=== PATIENT | female | born 1970 | race Caucasian/White ===

== ENCOUNTER 2018-08-28 11:03 | Emergency (ER) | payer SELFPAY ==
[2018-08-28] MEDS ORDERED: Zofran 4 MG/2 ML VIAL IV ONE (11:33)
[2018-08-28] MEDS ORDERED: Hydromorphone 1 mg/ml Ampule IV ONE (11:33)
[2018-08-28] MEDS ORDERED: Sodium Chloride 0.9% 1000 ML 1,000 ML IV STA (11:33)
--- NOTE | 2018-08-28 11:33 | ERPHSYRPT ---
- History of Present Illness Time Seen by Provider: 08/28/18 11:20 Source: patient Exam Limitations: no limitations Patient Subjective Stated Complaint: right low back pain since yesterday. no injury Triage Nursing Assessment: alert and uncomfortable with right flank pain going into right abdomen. states some mild urinary symptoms where she cannot get the flow started. denies hematuria. denies injury. 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 Physician History: 48 y/o white female presents with one day h/o initial right flank with radiation into right groin. no n/v/d. no hematuria. no known kidney stones. never had this pain before. no dysuria. Timing/Duration: day(s) (1) Activites at Onset: none Quality: aching, sharpness, stabbing Onset Location: right flank Pain Radiation: RLQ Severity of Pain-Max: moderate Severity of Pain-Current: moderate Prior abdominal problems: none Sexual intercourse history: non-contributory Modifying Factors: Improves With: nothing (tried 6x 200mg ibuprofen otc) Associated Symptoms: denies symptoms Allergies/Adverse Reactions: codeine Adverse Reaction (Verified 08/26/15 13:10) Hx Tetanus, Diphtheria Vaccination/Date Given: Yes (2005) Hx Influenza Vaccination/Date Given: No Hx Pneumococcal Vaccination/Date Given: No - Review of Systems Constitutional: No Symptoms Eyes: No Symptoms Ears, Nose, & Throat: No Symptoms Respiratory: No Symptoms Cardiac: No Symptoms Abdominal/Gastrointestinal: Abdominal Pain, No Nausea, No Vomiting, No Diarrhea Genitourinary Symptoms: Flank Pain, No Dysuria, No Frequency, No Hematuria Musculoskeletal: No Symptoms Skin: No Symptoms Neurological: No Symptoms Psychological: No Symptoms Endocrine: No Symptoms Hematologic/Lymphatic: No Symptoms Immunological/Allergic: No Symptoms All Other Systems: Reviewed and Negative - Past Medical History Pertinent Past Medical History: Yes Neurological History: No Pertinent History ENT History: No Pertinent History Cardiac History: Angina, Other Respiratory History: No Pertinent History Endocrine Medical History: Hypothyroidism GI Medical History: GI Bleed History: No Pertinent History Psycho-Social History: No Pertinent History Female Reproductive Disorders: Other Other Medical History: occ chestpain lt side with exertion and sob at times never had checked out,ovarian cysts removed - Past Surgical History Past Surgical History: Yes Neuro Surgical History: No Pertinent History Cardiac: No Pertinent History Gastrointestinal: No Pertinent History Genitourinary: No Pertinent History Musculoskeletal: No Pertinent History Female Surgical History: Tubal Ligation Other Surgical History: rt wrist ganglion cyst removed, ovarian cyst removed - Social History Smoking Status: Never smoker How long have you smoked: 25 Exposure to second hand smoke: No Drug Use: none Patient Lives Alone: No - Female History Hx Now: No - Nursing Vital Signs Nursing Vital Signs: Initial Vital Signs Temperature 97.9 F 08/28/18 11:15 Pulse Rate 89 08/28/18 11:15 Respiratory Rate 20 08/28/18 11:15 Blood Pressure 125/85 08/28/18 11:15 O2 Sat by Pulse Oximetry 99 08/28/18 11:15 Pain Scale Pain Intensity 3 - Physical Exam General Appearance: moderate distress, alert, thin Eye Exam: PERRL/EOMI, eyes nml inspection Ears, Nose, Throat Exam: normal ENT inspection, moist mucous membranes Neck Exam: normal inspection, non-tender, supple, full range of motion Respiratory Exam: normal breath sounds, lungs clear, airway intact, No chest tenderness, No respiratory distress, No accessory muscle use, No rhonchi, No wheezing, No stridor Cardiovascular Exam: regular rate/rhythm, normal heart sounds, normal peripheral pulses Gastrointestinal/Abdomen Exam: soft, normal bowel sounds, No tenderness, No guarding, No rebound Pelvic Exam: not done Rectal Exam: not done Back Exam: normal inspection, normal range of motion, CVA tenderness (right), No vertebral tenderness Extremity Exam: normal inspection, normal range of motion, pelvis stable Neurologic Exam: alert, oriented x 3, cooperative, 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 Skin Exam: normal color, warm, dry Lymphatic Exam: No adenopathy SpO2 Interpretation: normal SpO2: 99 - Course Nursing assessment & vital signs reviewed: Yes Ordered Tests: Active Orders 24 hr Category Date Time Status IV Insertion STAT Care 08/28/18 11:33 Active ABDOMEN AND PELVIS W/0 CONTRAS [CT] Stat Exams 08/28/18 11:34 Completed AMYLASE Stat Lab 08/28/18 11:44 Completed CBC W DIFF Stat Lab 08/28/18 11:44 Completed CMP Stat Lab 08/28/18 11:44 Completed LIPASE Stat Lab 08/28/18 11:44 Completed UA W/RFX UR CULTURE Stat Lab 08/28/18 11:34 Completed Medication Summary Generic Name Dose Route Start Last Admin Trade Name Freq PRN Reason Stop Dose Admin Ceftriaxone Sodium/Dextrose 1 g in 50 mls @ 100 mls/hr 08/28/18 13:15 Rocephin 1 Gm-D5w 50 Ml Bag IV 08/28/18 13:44 STAT STA Discontinued Medications Generic Name Dose Route Start Last Admin Trade Name Kash PRN Reason Stop Dose Admin Hydromorphone HCl 1 mg 08/28/18 11:33 08/28/18 11:43 Hydromorphone 1 Mg/Ml Ampule IV 08/28/18 11:34 1 mg STAT ONE Administration Hydromorphone HCl Confirm 08/28/18 11:39 Hydromorphone 1 Mg/Ml Ampule Administered 08/28/18 11:40 Dose 1 mg .ROUTE .STK-MED ONE Sodium Chloride 1,000 mls @ 999 mls/hr 08/28/18 11:33 08/28/18 11:44 Sodium Chloride 0.9% 1000 Ml IV 08/28/18 12:33 999 mls/hr .Q1H1M STA Administration Sodium Chloride Confirm 08/28/18 11:39 Sodium Chloride 0.9% 1000 Ml Administered 08/28/18 11:40 Dose 1,000 mls @ ud .ROUTE .STK-MED ONE Ceftriaxone Sodium/Dextrose Confirm 08/28/18 13:21 Rocephin 1 Gm-D5w 50 Ml Bag Administered 08/28/18 13:22 Dose 1 g in 50 mls @ ud IV .STK-MED ONE Lorazepam 1 mg 08/28/18 13:14 Ativan 2 Mg/1 Ml Vial IV 08/28/18 13:15 STAT ONE Lorazepam Confirm 08/28/18 13:20 Ativan 2 Mg/1 Ml Vial Administered 08/28/18 13:21 Dose 2 mg .ROUTE .STK-MED ONE Methylprednisolone Sodium Succinate 125 mg 08/28/18 13:14 Solu-Medrol 125 Mg IV 08/28/18 13:15 STAT ONE Methylprednisolone Sodium Succinate Confirm 08/28/18 13:21 Solu-Medrol 125 Mg Administered 08/28/18 13:22 Dose 125 mg .ROUTE .STK-MED ONE Ondansetron HCl 4 mg 08/28/18 11:33 08/28/18 11:43 Zofran 4 Mg/2 Ml Vial IV 08/28/18 11:34 4 mg STAT ONE Administration Ondansetron HCl Confirm 08/28/18 11:38 Zofran 4 Mg/2 Ml Vial Administered 08/28/18 11:39 Dose 4 mg .ROUTE .STK-MED ONE Lab/Rad Data: Laboratory Result Diagrams 08/28/18 11:44 08/28/18 11:44 Laboratory Results 08/28/18 08/28/18 08/28/18 Range/Units 11:44 11:44 11:34 WBC 6.2 (4.0-10.5) K/mm3 RBC 4.27 (4.1-5.4) M/mm3 Hgb 13.1 (12.0-16.0) gm/dl Hct 39.8 (35-47) % MCV 93.2 (78-100) fl MCH 30.7 (26-32) pg MCHC 32.9 (32-36) g/dl RDW 12.7 (11.5-14.0) % Plt Count 266 (150-450) K/mm3 MPV 10.2 H (6-9.5) fl Gran % 66.2 H (36.0-66.0) % Eos # (Auto) 0.14 (0-0.5) Absolute Lymphs (auto) 1.46 (1.0-4.6) Absolute Monos (auto) 0.49 (0.0-1.3) Lymphocytes % 23.4 L (24.0-44.0) % Monocytes % 7.9 (0.0-12.0) % Eosinophils % 2.2 (0.00-5.0) % Basophils % 0.3 (0.0-0.4) % Absolute Granulocytes 4.12 (1.4-6.9) Basophils # 0.02 (0-0.4) Sodium 141 (137-145) mmol/L Potassium 3.9 (3.5-5.1) mmol/L Chloride 104 (98-107) mmol/L Carbon Dioxide 28 (22-30) mmol/L Anion Gap 12.7 (5-15) MEQ/L BUN 12 (7-17) mg/dL Creatinine 0.77 (0.52-1.04) mg/dL Estimated GFR > 60.0 ML/MIN Glucose 113 H (74-106) mg/dL Calcium 9.2 (8.4-10.2) mg/dL Total Bilirubin 0.50 (0.2-1.3) mg/dL AST 23 (14-36) U/L ALT 20 (0-35) U/L Alkaline Phosphatase 66 (38-126) U/L Serum Total Protein 7.1 (6.3-8.2) g/dL Albumin 4.3 (3.5-5.0) g/dL Amylase 88 (30-110) U/L Lipase 114 (23-300) U/L Urine Color YELLOW (YELLOW) Urine Appearance SLIGHTLY CLOUDY (CLEAR) Urine pH 5.0 (5-6) Ur Specific [place] 1.028 (1.005-1.025) Urine Protein NEGATIVE (Negative) Urine Ketones NEGATIVE (NEGATIVE) Urine Blood NEGATIVE (0-5) Angel/ul Urine Nitrite NEGATIVE (NEGATIVE) Urine Bilirubin NEGATIVE (NEGATIVE) Urine Urobilinogen NEGATIVE (0-1) mg/dL Ur Leukocyte Esterase SMALL (NEGATIVE) Urine WBC (Auto) 3-5 (0-5) /HPF Urine RBC (Auto) NONE (0-2) /HPF U Epithel Cells (Auto) RARE (FEW) /HPF Urine Bacteria (Auto) RARE (NEGATIVE) /HPF Urine Mucus (Auto) SLIGHT (NEGATIVE) /HPF Urine Culture Reflexed NO (NO) Urine Glucose NEGATIVE (NEGATIVE) mg/dL - Progress Progress: improved, re-examined Air Movement: good Progress Note: 08/28/18 13:13 ct scan abd/pelvis-fecal stasis no other acute process 08/28/18 13:24 pt states she does not want any narcotics. they make her sick to her stomach. Blood Culture(s) Obtained: No Antibiotics given: Yes Counseled pt/family regarding: lab results, diagnosis, need for follow-up, rad results - Departure Time of Disposition: 13:24 Departure Disposition: Home Clinical Impression: Flank pain, Back pain, UTI (urinary tract infection), Sciatica Condition: Stable Critical Care Time: No Referrals: DOCTOR,NO FAMILY [Primary Care Provider] - Additional Instructions: drink plenty fluids. stop ibuprofen while taking steroids. add tylenol for pain. increase your activity, walking. follow up with primary doctor for further management Prescriptions: Carisoprodol 350 mg [Soma 350 mg] 350 mg PO Q8H PRN PRN #10 tablet PRN Reason: Muscle Spasms Cephalexin Mh 500 mg [Keflex 500 mg] 500 mg PO TID #21 capsule Prednisone 10 mg [Deltasone 10 mg] 10 mg PO TID #12 tablet
[2018-08-28] MEDS ORDERED: Zofran 4 MG/2 ML VIAL ONE (11:38)
[2018-08-28] MEDS ORDERED: Sodium Chloride 0.9% 1000 ML 1,000 ML ONE (11:39)
[2018-08-28] MEDS ORDERED: Hydromorphone 1 mg/ml Ampule ONE (11:39)
[2018-08-28 11:46] LABS: BASOPHIL % 0.3 % (0.0-0.4); Basophil (Absolute #) 0.02 (0-0.4); Eosinophil % 2.2 % (0.00-5.0); Eosinophil (Absolute #) 0.14 (0-0.5); Granulocyte Absolute (ANC) 4.12 (1.4-6.9); Granulocytes % 66.2 % (36.0-66.0); Hematocrit 39.8 % (35-47); Hemoglobin 13.1 gm/dl (12.0-16.0); Lymphocyte (Absolute #) 1.46 (1.0-4.6); Lymphocytes % 23.4 % (24.0-44.0); Mean Cell Volume 93.2 fl (78-100); Mean Corpuscular Hemoglobin 30.7 pg (26-32); Mean Corpuscular Hgb Concent. 32.9 g/dl (32-36); Mean Platelet Volume 10.2 fl (6-9.5); Monocyte (Absolute #) 0.49 (0.0-1.3); Monocytes % 7.9 % (0.0-12.0); Platelet Count 266 K/mm3 (150-450); Red Blood Count 4.27 M/mm3 (4.1-5.4); Red Cell Distribution Width 12.7 % (11.5-14.0); White Blood Count 6.2 K/mm3 (4.0-10.5)
[2018-08-28 11:48] LABS: Appearance SLIGHTLY CLOUDY (CLEAR); Bacteria RARE /HPF (NEGATIVE); Bilirubin NEGATIVE (NEGATIVE); Blood NEGATIVE Ery/ul (0-5); Epithelial Cells RARE /HPF (FEW); Glucose NEGATIVE (NEGATIVE); Ketones NEGATIVE (NEGATIVE); Leukocyte Esterase SMALL (NEGATIVE); Mucus SLIGHT /HPF (NEGATIVE); Nitrite NEGATIVE (NEGATIVE); Protein,Urine Dip NEGATIVE (Negative); Specific Gravity 1.028 (1.005-1.025); Urobilinogen NEGATIVE mg/dL (0-1)
[2018-08-28 11:58] LABS: ALBUMIN 4.3 g/dL (3.5-5.0); ALKALINE PHOSPHATASE 66 U/L (38-126); AMYLASE 88 U/L (30-110); ANION GAP 12.7 MEQ/L (5-15); BLOOD UREA NITROGEN 12 mg/dL (7-17); CHLORIDE 104 mmol/L (98-107); Calcium 9.2 mg/dL (8.4-10.2); Carbon Dioxide 28 mmol/L (22-30); Creatinine 1 0.77 mg/dL (0.52-1.04); Glucose 113 mg/dL (74-106); LIPASE 114 U/L (23-300); Potassium 3.9 mmol/L (3.5-5.1); SGOT/AST 23 U/L (14-36); SGPT/ALT 20 U/L (0-35); SODIUM 141 mmol/L (137-145); Total Protein 7.1 g/dL (6.3-8.2)
[2018-08-28 12:32] VITALS: PULSE 70
--- NOTE | 2018-08-28 12:53 | XRAY ---
Indication: Right lower quadrant pain. Multiple contiguous axial images obtained through the abdomen and pelvis without contrast as ordered. Comparison: CT renal stone study May 18, 2013. Lung bases demonstrates stable medial right middle lobe and left base fibrosis/scarring. No infiltrate or effusion. Heart is not enlarged. Noncontrasted stomach and bowel loops appear nonobstructed. Normal appendix. There is now mild diffuse scattered colonic fecal debris throughout and mild sigmoid diverticulosis. No free fluid/air. Right kidney rotated in axial plane. Remaining liver, gallbladder, pancreas, spleen, adrenal glands, kidneys, ureters, lateral, uterus, and aorta appear unremarkable for noncontrast exam. Osseous structures intact. Stable tiny fatty umbilical hernia. Impression: 1. New fecal stasis without obstruction and sigmoid diverticulosis. 2. Stable tiny fatty umbilical hernia. 3. Remaining CT abdomen/pelvis without contrast exam is negative. CT DI 8.94
[2018-08-28 13:14] VITALS: O2SAT 99
[2018-08-28] MEDS ORDERED: Ativan 2 MG/1 ML VIAL IV ONE (13:14)
[2018-08-28] MEDS ORDERED: solu-MEDROL 125 MG IV ONE (13:14)
[2018-08-28] MEDS ORDERED: ROCEPHIN 1 Gm-D5w 50 ml Bag** 1 G/50 ML IVPB IV STA (13:15)
[2018-08-28] MEDS ORDERED: Ativan 2 MG/1 ML VIAL ONE (13:20)
[2018-08-28] MEDS ORDERED: ROCEPHIN 1 Gm-D5w 50 ml Bag** 1 G/50 ML IVPB IV ONE (13:21)
[2018-08-28] MEDS ORDERED: solu-MEDROL 125 MG ONE (13:21)
[2018-08-28 16:33] VITALS: BP 105/72
== END 2018-08-28 16:18 | disposition home or self-care (01) ==
LOC: ED 11:03
DX: R10.9 Unspecified abdominal pain (principal); M54.9 Dorsalgia, unspecified; N39.0 Urinary tract infection, site not specified; M54.30 Sciatica, unspecified side; E03.9 Hypothyroidism, unspecified
CPT/HCPCS: 36000; 36415; 74176; 80053; 81001; 82150; 83690; 85025; 96360; 96365; 96374; 96375; 99284; J0696; J1170; J2060; J2405; J2930

== ENCOUNTER 2019-06-07 17:52 | Emergency (ER) | payer OTHER ==
[2019-06-07 18:05] VITALS: PULSE 100; O2SAT 100
--- NOTE | 2019-06-07 18:21 | ERPHSYRPT ---
<MITUL SMITH - Last Filed: 06/07/19 20:21> - History of Present Illness Time Seen by Provider: 06/07/19 18:00 Allergies/Adverse Reactions: codeine Adverse Reaction (Verified 06/07/19 17:54) Home Medications: Levothyroxine Sodium 75 Mcg [Synthroid 75 Mcg] 75 mcg DAILY 06/07/19 [ History] - Nursing Vital Signs Nursing Vital Signs: Initial Vital Signs Temperature 97.8 F 06/07/19 17:56 Pulse Rate 99 H 06/07/19 17:56 Respiratory Rate 18 06/07/19 17:56 Blood Pressure 133/95 06/07/19 17:56 O2 Sat by Pulse Oximetry 100 06/07/19 17:56 Pain Scale Pain Intensity 0 Ordered Tests: Medication Summary Discontinued Medications Generic Name Dose Route Start Last Admin Trade Name Freq PRN Reason Stop Dose Admin Aspirin 324 mg 06/07/19 18:22 06/07/19 18:42 Baby Aspirin 81 Mg Chew PO 06/07/19 18:23 324 mg STAT ONE Administration Aspirin Confirm 06/07/19 18:41 Baby Aspirin 81 Mg Chew Administered 06/07/19 18:42 Dose 81 mg .ROUTE .STK-MED ONE Sodium Chloride 1,000 mls @ 999 mls/hr 06/07/19 18:22 06/07/19 18:42 Sodium Chloride 0.9% 1000 Ml IV 06/07/19 19:22 999 mls/hr .Q1H1M STA Administration Sodium Chloride Confirm 06/07/19 18:41 Sodium Chloride 0.9% 1000 Ml Administered 06/07/19 18:42 Dose 1,000 mls @ ud .ROUTE .STK-MED ONE Lab/Rad Data: Laboratory Result Diagrams 06/07/19 18:40 06/07/19 18:40 Laboratory Results 06/07/19 06/07/19 06/07/19 Range/Units 18:40 18:40 18:40 WBC (4.0-10.5) K/mm3 RBC (4.1-5.4) M/mm3 Hgb (12.0-16.0) gm/dl Hct (35-47) % MCV (78-100) fl MCH (26-32) pg MCHC (32-36) g/dl RDW (11.5-14.0) % Plt Count (150-450) K/mm3 MPV (6-9.5) fl Gran % (36.0-66.0) % Eos # (Auto) (0-0.5) Absolute Lymphs (auto) (1.0-4.6) Absolute Monos (auto) (0.0-1.3) Lymphocytes % (24.0-44.0) % Monocytes % (0.0-12.0) % Eosinophils % (0.00-5.0) % Basophils % (0.0-0.4) % Absolute Granulocytes (1.4-6.9) Basophils # (0-0.4) PT 11.2 (9.95-12.35) SECONDS INR 0.99 (0.8-3.0) APTT 33.9 (25.3-37.0) SECONDS D-Dimer 371 (215-500) ng/mL Sodium 142 (137-145) mmol/L Potassium 3.6 (3.5-5.1) mmol/L Chloride 104 (98-107) mmol/L Carbon Dioxide 27 (22-30) mmol/L Anion Gap 14.1 (5-15) MEQ/L BUN 13 (7-17) mg/dL Creatinine 0.65 (0.52-1.04) mg/dL Estimated GFR > 60.0 ML/MIN Glucose 96 (74-106) mg/dL Calcium 10.0 (8.4-10.2) mg/dL Magnesium 1.8 (1.6-2.3) mg/dL Total Bilirubin 0.40 (0.2-1.3) mg/dL AST 30 (14-36) U/L ALT 24 (0-35) U/L Alkaline Phosphatase 60 (38-126) U/L Creatine Kinase 102 (30-135) U/L Troponin I < 0.012 (0.000-0.034) ng/mL NT-Pro-B Natriuret Pep 25.0 (0-450) pg/mL Serum Total Protein 8.1 (6.3-8.2) g/dL Albumin 4.8 (3.5-5.0) g/dL 06/07/19 Range/Units 18:40 WBC 6.5 (4.0-10.5) K/mm3 RBC 4.64 (4.1-5.4) M/mm3 Hgb 14.3 (12.0-16.0) gm/dl Hct 42.7 (35-47) % MCV 92.0 (78-100) fl MCH 30.8 (26-32) pg MCHC 33.5 (32-36) g/dl RDW 12.8 (11.5-14.0) % Plt Count 283 (150-450) K/mm3 MPV 10.6 H (6-9.5) fl Gran % 64.2 (36.0-66.0) % Eos # (Auto) 0.17 (0-0.5) Absolute Lymphs (auto) 1.54 (1.0-4.6) Absolute Monos (auto) 0.59 (0.0-1.3) Lymphocytes % 23.8 L (24.0-44.0) % Monocytes % 9.1 (0.0-12.0) % Eosinophils % 2.6 (0.00-5.0) % Basophils % 0.3 (0.0-0.4) % Absolute Granulocytes 4.15 (1.4-6.9) Basophils # 0.02 (0-0.4) PT (9.95-12.35) SECONDS INR (0.8-3.0) APTT (25.3-37.0) SECONDS D-Dimer (215-500) ng/mL Sodium (137-145) mmol/L Potassium (3.5-5.1) mmol/L Chloride (98-107) mmol/L Carbon Dioxide (22-30) mmol/L Anion Gap (5-15) MEQ/L BUN (7-17) mg/dL Creatinine (0.52-1.04) mg/dL Estimated GFR ML/MIN Glucose (74-106) mg/dL Calcium (8.4-10.2) mg/dL Magnesium (1.6-2.3) mg/dL Total Bilirubin (0.2-1.3) mg/dL AST (14-36) U/L ALT (0-35) U/L Alkaline Phosphatase (38-126) U/L Creatine Kinase (30-135) U/L Troponin I (0.000-0.034) ng/mL NT-Pro-B Natriuret Pep (0-450) pg/mL Serum Total Protein (6.3-8.2) g/dL Albumin (3.5-5.0) g/dL - Progress Progress: improved Air Movement: good Progress Note: 06/07/19 20:21 cxr-no acute process no further cp.. Blood Culture(s) Obtained: No Antibiotics given: No Counseled pt/family regarding: lab results, diagnosis, need for follow-up, rad results - Departure Departure Disposition: Home Clinical Impression: Acute chest pain, Elevated blood pressure reading without diagnosis of hypertension Condition: Stable Critical Care Time: No Referrals: MAIRA MAURER [Primary Care Provider] - 06/08/19 Instructions: Chest Pain (DC) <DAHLIA WESTCHADDMARIYA SIFUENTES - Last Filed: 06/09/19 01:51> - History of Present Illness Historian: patient Exam Limitations: no limitations Patient Subjective Stated Complaint: Pt c/o of sudden onset chest pain, diaphresis, nausea, lightheadedness and dizzines that began about 15 minutes before arrival Triage Nursing Assessment: pt alert and oriented x 3. able to voice wants and needs. skin warm. clutching mid-chest. tearful. states chest hurts. rates as 2/ 10. states chest pain isn't constant. Physician History: Left sided chest pain of sudden onset while shopping. It last less than 30 minutes. Resolved pain now. Timing/Duration: today (0.5), hour(s) Activities at Onset: activity (mild activity, she was shopping with walking pace ) Quality: sharpness Location: other (left chest) Chest Pain Radiation: no radiation Severity of Pain-Max: moderate Severity of Pain-Current: none Modifying Factors: Improves With: nothing Associated Symptoms: No nausea, No vomiting, No palpitations, No heartburn, No abdominal pain, No shortness of breath, No cough, No hurts to breathe, No diaphoresis, No chills, No fever, No fatigue, No weakness, No swelling/lump in chest, No syncope, No rash, No headache, No dizziness, No edema, No back pain Prior Chest Pain/Cardiac Workup: echocardiography, stress test Nitro Today/Relief: no nitro taken today Aspirin Treatment Today: no aspirin today Hx Tetanus, Diphtheria Vaccination/Date Given: Yes (2005) Hx Influenza Vaccination/Date Given: No Hx Pneumococcal Vaccination/Date Given: No - Review of Systems Constitutional: No Fever, No Chills, No Fatigue Eyes: No Eye Pain, No Vision Changes Ears, Nose, & Throat: No Mouth Pain, No Mouth Swelling, No Throat Swelling, No Painful Swallowing Respiratory: No Cough, No Dyspnea Cardiac: Chest Pain, No Edema, No Palpitations, No Syncope Abdominal/Gastrointestinal: No Abdominal Pain, No Nausea, No Vomiting, No Melena Genitourinary Symptoms: No Dysuria, No Frequency, No Hematuria, No Flank Pain Musculoskeletal: No Back Pain, No Neck Pain Skin: No Induration, No Pruritis, No Rash Neurological: No Dizziness, No Focal Weakness, No Parasthesia Psychological: No Anxiety, No Emotional Lability Hematologic/Lymphatic: No Easy Bleeding, No Easy Bruising All Other Systems: Reviewed and Negative - Past Medical History Pertinent Past Medical History: Yes Neurological History: No Pertinent History ENT History: No Pertinent History Cardiac History: Angina, Other Respiratory History: No Pertinent History Endocrine Medical History: Hypothyroidism GI Medical History: GI Bleed History: No Pertinent History Psycho-Social History: No Pertinent History Female Reproductive Disorders: Other Other Medical History: occ chestpain lt side with exertion and sob at times never had checked out,ovarian cysts removed - Past Surgical History Past Surgical History: Yes Neuro Surgical History: No Pertinent History Cardiac: No Pertinent History Gastrointestinal: No Pertinent History Genitourinary: No Pertinent History Musculoskeletal: No Pertinent History Female Surgical History: Tubal Ligation Other Surgical History: rt wrist ganglion cyst removed, ovarian cyst removed - Social History Smoking Status: Never smoker How long have you smoked: 25 Exposure to second hand smoke: No Drug Use: none Patient Lives Alone: No - Female History Hx Now: No - Physical Exam General Appearance: no apparent distress, alert Eye Exam: PERRL/EOMI, eyes nml inspection, No scleral icterus, No pale conjunctivae Ears, Nose, Throat Exam: pharynx normal, moist mucous membranes Neck Exam: normal inspection, non-tender, supple, full range of motion, No meningismus, No Brudzinski, No lymphadenopathy Respiratory Exam: normal breath sounds, lungs clear, airway intact, No chest tenderness, No respiratory distress, No diminished breath sounds, No accessory muscle use, No prolonged expirations, No crackles/rales, No rhonchi, No wheezing Cardiovascular Exam: regular rate/rhythm, normal heart sounds, normal peripheral pulses, capillary refill <2 sec, No friction rub Gastrointestinal/Abdomen Exam: soft, normal bowel sounds, No tenderness, No mass , No rebound Back Exam: normal inspection, normal range of motion, No CVA tenderness, No vertebral tenderness, No rash Extremity Exam: normal inspection, normal range of motion, pelvis stable, No calf tenderness, No jimmie's sign, No pedal edema Neurologic Exam: alert, oriented x 3, cooperative, 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, normal mood/affect, sensation nml, No motor deficits Skin Exam: normal color, warm, dry, No rash, No petechiae, No cyanosis SpO2 Interpretation: normal SpO2: 100 O2 Delivery: Room Air - Course Nursing assessment & vital signs reviewed: Yes EKG Interpreted by Me: RATE, NORMAL AXIS, NORMAL INTERVALS, NORMAL QRS, NORMAL ST-T, Other (no appreciable change in comparison to EKG from 03/17/2019) - Radiology Exams Chest X-ray Interpretation: Interpreted by me, Reviewed by me, Negative, No Pneumonia , No Pneumothorax, Nml Heart Size, No Infiltrates, Nml Mediastinum Ordered Tests: Medication Summary Discontinued Medications Generic Name Dose Route Start Last Admin Trade Name Freq PRN Reason Stop Dose Admin Aspirin 324 mg 06/07/19 18:22 06/07/19 18:42 Baby Aspirin 81 Mg Chew PO 06/07/19 18:23 324 mg STAT ONE Administration Aspirin Confirm 06/07/19 18:41 Baby Aspirin 81 Mg Chew Administered 06/07/19 18:42 Dose 81 mg .ROUTE .STK-MED ONE Sodium Chloride 1,000 mls @ 999 mls/hr 06/07/19 18:22 06/07/19 18:42 Sodium Chloride 0.9% 1000 Ml IV 06/07/19 19:22 999 mls/hr .Q1H1M STA Administration Sodium Chloride Confirm 06/07/19 18:41 Sodium Chloride 0.9% 1000 Ml Administered 06/07/19 18:42 Dose 1,000 mls @ ud .ROUTE .STK-MED ONE Lab/Rad Data: Laboratory Result Diagrams 06/07/19 18:40 06/07/19 18:40 Laboratory Results 11/03/19 11/03/19 11/03/19 Range/Units 18:40 18:40 18:40 WBC (4.0-10.5) K/mm3 RBC (4.1-5.4) M/mm3 Hgb (12.0-16.0) gm/dl Hct (35-47) % MCV (78-100) fl MCH (26-32) pg MCHC (32-36) g/dl RDW (11.5-14.0) % Plt Count (150-450) K/mm3 MPV (6-9.5) fl Gran % (36.0-66.0) % Eos # (Auto) (0-0.5) Absolute Lymphs (auto) (1.0-4.6) Absolute Monos (auto) (0.0-1.3) Lymphocytes % (24.0-44.0) % Monocytes % (0.0-12.0) % Eosinophils % (0.00-5.0) % Basophils % (0.0-0.4) % Absolute Granulocytes (1.4-6.9) Basophils # (0-0.4) PT 11.2 (9.95-12.35) SECONDS INR 0.99 (0.8-3.0) APTT 33.9 (25.3-37.0) SECONDS D-Dimer 371 (215-500) ng/mL Sodium 142 (137-145) mmol/L Potassium 3.6 (3.5-5.1) mmol/L Chloride 104 (98-107) mmol/L Carbon Dioxide 27 (22-30) mmol/L Anion Gap 14.1 (5-15) MEQ/L BUN 13 (7-17) mg/dL Creatinine 0.65 (0.52-1.04) mg/dL Estimated GFR > 60.0 ML/MIN Glucose 96 (74-106) mg/dL Calcium 10.0 (8.4-10.2) mg/dL Magnesium 1.8 (1.6-2.3) mg/dL Total Bilirubin 0.40 (0.2-1.3) mg/dL AST 30 (14-36) U/L ALT 24 (0-35) U/L Alkaline Phosphatase 60 (38-126) U/L Creatine Kinase 102 (30-135) U/L Troponin I < 0.012 (0.000-0.034) ng/mL NT-Pro-B Natriuret Pep 25.0 (0-450) pg/mL Serum Total Protein 8.1 (6.3-8.2) g/dL Albumin 4.8 (3.5-5.0) g/dL 06/07/19 Range/Units 18:40 WBC 6.5 (4.0-10.5) K/mm3 RBC 4.64 (4.1-5.4) M/mm3 Hgb 14.3 (12.0-16.0) gm/dl Hct 42.7 (35-47) % MCV 92.0 (78-100) fl MCH 30.8 (26-32) pg MCHC 33.5 (32-36) g/dl RDW 12.8 (11.5-14.0) % Plt Count 283 (150-450) K/mm3 MPV 10.6 H (6-9.5) fl Gran % 64.2 (36.0-66.0) % Eos # (Auto) 0.17 (0-0.5) Absolute Lymphs (auto) 1.54 (1.0-4.6) Absolute Monos (auto) 0.59 (0.0-1.3) Lymphocytes % 23.8 L (24.0-44.0) % Monocytes % 9.1 (0.0-12.0) % Eosinophils % 2.6 (0.00-5.0) % Basophils % 0.3 (0.0-0.4) % Absolute Granulocytes 4.15 (1.4-6.9) Basophils # 0.02 (0-0.4) PT (9.95-12.35) SECONDS INR (0.8-3.0) APTT (25.3-37.0) SECONDS D-Dimer (215-500) ng/mL Sodium (137-145) mmol/L Potassium (3.5-5.1) mmol/L Chloride (98-107) mmol/L Carbon Dioxide (22-30) mmol/L Anion Gap (5-15) MEQ/L BUN (7-17) mg/dL Creatinine (0.52-1.04) mg/dL Estimated GFR ML/MIN Glucose (74-106) mg/dL Calcium (8.4-10.2) mg/dL Magnesium (1.6-2.3) mg/dL Total Bilirubin (0.2-1.3) mg/dL AST (14-36) U/L ALT (0-35) U/L Alkaline Phosphatase (38-126) U/L Creatine Kinase (30-135) U/L Troponin I (0.000-0.034) ng/mL NT-Pro-B Natriuret Pep (0-450) pg/mL Serum Total Protein (6.3-8.2) g/dL Albumin (3.5-5.0) g/dL - Progress Progress Note: 06/07/19 18:25 02/23/2019: Nuclear Cardiac Stress Test: Normal with no perfusion deficits and normal EF 02/23/2019: 2D Echo: Normal LV and contractility; Normal RV pressure; mild tricuspid regurgitation; can not rule out MVP 06/07/19 19:00 Discussed the case with Dr Smith, [facility] emergency department attending. Care will be transferred to Dr Smith. Dr Smith will determine the final disposition of the patient after evaluation of labs and imaging and re- evaluation of the patient.
[2019-06-07] MEDS ORDERED: BABY ASPIRIN 81 MG CHEW PO ONE (18:22)
[2019-06-07] MEDS ORDERED: Sodium Chloride 0.9% 1000 ML 1,000 ML IV STA (18:22)
[2019-06-07] MEDS ORDERED: BABY ASPIRIN 81 MG CHEW ONE (18:41)
[2019-06-07] MEDS ORDERED: Sodium Chloride 0.9% 1000 ML 1,000 ML ONE (18:41)
[2019-06-07 18:44] LABS: Absolute Neutrophil Ct (ANC) 4.15 (1.4-6.9); BASOPHIL % 0.3 % (0.0-0.4); Basophil (Absolute #) 0.02 (0-0.4); Eosinophil % 2.6 % (0.00-5.0); Eosinophil (Absolute #) 0.17 (0-0.5); Hematocrit 42.7 % (35-47); Hemoglobin 14.3 gm/dl (12.0-16.0); Lymphocyte (Absolute #) 1.54 (1.0-4.6); Lymphocytes % 23.8 % (24.0-44.0); Mean Corpuscular Hemoglobin 30.8 pg (26-32); Mean Corpuscular Hgb Concent. 33.5 g/dl (32-36); Mean Platelet Volume 10.6 fl (6-9.5); Monocyte (Absolute #) 0.59 (0.0-1.3); Monocytes % 9.1 % (0.0-12.0); Neutrophil % 64.2 % (36.0-66.0); Platelet Count 283 K/mm3 (150-450); Red Blood Count 4.64 M/mm3 (4.1-5.4); Red Cell Distribution Width 12.8 % (11.5-14.0); White Blood Count 6.5 K/mm3 (4.0-10.5)
[2019-06-07 18:52] LABS: INR 0.99 (0.8-3.0); PROTIME 11.2 SECONDS (9.95-12.35)
[2019-06-07 18:54] LABS: PTT 33.9 SECONDS (25.3-37.0)
[2019-06-07 19:08] LABS: ALBUMIN 4.8 g/dL (3.5-5.0); ALKALINE PHOSPHATASE 60 U/L (38-126); ANION GAP 14.1 MEQ/L (5-15); BLOOD UREA NITROGEN 13 mg/dL (7-17); CHLORIDE 104 mmol/L (98-107); CK-Creatinine Phosphokinase 102 U/L (30-135); Carbon Dioxide 27 mmol/L (22-30); Creatinine 1 0.65 mg/dL (0.52-1.04); Glucose 96 mg/dL (74-106); MAGNESIUM 1.8 mg/dL (1.6-2.3); Potassium 3.6 mmol/L (3.5-5.1); SGOT/AST 30 U/L (14-36); SGPT/ALT 24 U/L (0-35); SODIUM 142 mmol/L (137-145); Total Protein 8.1 g/dL (6.3-8.2)
[2019-06-07 20:56] VITALS: BP 118/83
--- NOTE | 2019-06-08 08:43 | XRAY ---
Indication: Chest pain. Comparison: None Portable chest demonstrates normal heart, lungs, and bony thorax.
== END 2019-06-07 21:02 | disposition home or self-care (01) ==
LOC: ED 17:52
DX: R07.9 Chest pain, unspecified (principal); R03.0 Elevated blood-pressure reading, without diagnosis of hypertension
CPT/HCPCS: 36000; 36415; 71045; 80053; 82550; 83735; 83880; 84484; 85025; 85379; 85610; 85730; 93005; 93041; 94760; 96360; 99284; A9270-GY

== ENCOUNTER 2021-04-22 01:32 | Emergency (ER) | payer OTHER ==
[2021-04-22] MEDS ORDERED: BABY ASPIRIN 81 MG CHEW PO ONE (01:55)
--- NOTE | 2021-04-22 02:04 | ERPHSYRPT ---
- History of Present Illness Time Seen by Provider: 04/22/21 01:35 Historian: patient Exam Limitations: no limitations Patient Subjective Stated Complaint: "My chest hurts." Triage Nursing Assessment: The patient is a 51 y/o white female with PMH s ignificant of hypothyroidism and angina with abnormal EKGs. Her safe and vault installer is Dr. Islas. She reported that at 0030 tonight she was getting ready for bed and her chest started hurting. Chest pain described as a pressure that radiates to the left shoulder, arm, neck, and jar. Associated dizziness, nausea, and intermittent cold sweats. Denied shortness of breath at this time. Pupils 3mm bilateral. EOMs intact. Neck supple non-tender. No lymphadenopathy. Symmetrical chest expansion. Heart tones S1/S2 RRR without extra sounds. Lung vesicular with adequate airflow. Abdomen non-distended with bowel sounds in all quadrants. No tenderness to palpation. Peripheral pulses +3 bilateral. No noted dependent edema. Physician History: This is a 51-year-old white female who was diagnosed with COVID-19 infection 2 weeks ago. She has very minor symptoms at this time which includes sore throat. She does not have a cough. She has no shortness of breath. She has no abdominal pain. She has no nausea vomiting or diarrhea. Patient has a history of chronic angina as well as a history of hypothyroidism. She is not on any thyroid supplementation. On 02/23/2019 patient under went a nuclear cardiac stress test which was normal. On the same day she underwent a 2D echo which could not rule out mitral valve prolapse. There was also mild tricuspid regurgitation present. Patient's safe and vault installer is Dr. Islas and he told the patient that he believes she has mitral valve prolapse. Patient did use illicit drugs earlier this evening. She used methamphetamines. She stated that she use this because she is so tired and rundown. Patient states that she has left anterior chest pain de scribed as a pressure with radiation up her left side of her neck, left shoulder and upper left arm Timing/Duration: today (Onset approximately 45 minutes prior to arrival to the emergency department) Activities at Onset: other (Methamphetamine use) Location: other (Left anterior chest) Chest Pain Radiation: neck (Left), arm (Upper left) Severity of Pain-Max: mild Severity of Pain-Current: mild Modifying Factors: Improves With: nothing Associated Symptoms: denies symptoms Prior Chest Pain/Cardiac Workup: angina (Patient has chronic angina) Nitro Today/Relief: no nitro taken today Aspirin Treatment Today: no aspirin today Allergies/Adverse Reactions: codeine Adverse Reaction (Verified 06/07/19 17:54) Hx Tetanus, Diphtheria Vaccination/Date Given: Yes (2005) Hx Influenza Vaccination/Date Given: No Hx Pneumococcal Vaccination/Date Given: No Travel Risk - International Travel Have you traveled outside of the country in past 3 weeks: No - Coronavirus Screening Are you exhibiting any of the following symptoms?: Yes Symptoms: Shortness of Breath Close contact with a COVID-19 positive Pt in past 14-21 Days: Yes - Vaccine Status Have you recieved a Covid-19 vaccination: No - Review of Systems Constitutional: No Symptoms Eyes: No Symptoms Ears, Nose, & Throat: No Symptoms Respiratory: No Symptoms Cardiac: Chest Pain Abdominal/Gastrointestinal: No Symptoms Genitourinary Symptoms: No Symptoms Musculoskeletal: No Symptoms Skin: No Symptoms Neurological: No Symptoms Psychological: No Symptoms Endocrine: No Symptoms Hematologic/Lymphatic: No Symptoms Immunological/Allergic: No Symptoms All Other Systems: Reviewed and Negative - Past Medical History Pertinent Past Medical History: Yes Neurological History: No Pertinent History ENT History: No Pertinent History Cardiac History: Angina, Other Respiratory History: No Pertinent History Endocrine Medical History: Hypothyroidism GI Medical History: GI Bleed History: No Pertinent History Psycho-Social History: No Pertinent History Female Reproductive Disorders: Other Other Medical History: occ chestpain lt side with exertion and sob at times never had checked out,ovarian cysts removed - Past Surgical History Past Surgical History: Yes Neuro Surgical History: No Pertinent History Cardiac: No Pertinent History Gastrointestinal: No Pertinent History Genitourinary: No Pertinent History Musculoskeletal: No Pertinent History Female Surgical History: Tubal Ligation Other Surgical History: rt wrist ganglion cyst removed, ovarian cyst removed, left salivary gland tumor - Social History Smoking Status: Current every day smoker How long have you smoked: 25 Exposure to second hand smoke: No Drug Use: methamphetamines Patient Lives Alone: No - Female History Hx Now: No - Nursing Vital Signs Nursing Vital Signs: Initial Vital Signs Pulse Rate 90 04/22/21 01:32 Respiratory Rate 20 04/22/21 01:32 Blood Pressure 139/92 04/22/21 01:32 O2 Sat by Pulse Oximetry 99 04/22/21 01:32 Pain Scale Pain Intensity 3 - Physical Exam General Appearance: no apparent distress, alert, anxiety Eye Exam: PERRL/EOMI, eyes nml inspection Ears, Nose, Throat Exam: normal ENT inspection, moist mucous membranes Neck Exam: normal inspection, non-tender, supple, full range of motion Respiratory Exam: normal breath sounds, chest tenderness, lungs clear, airway intact, No respiratory distress Cardiovascular Exam: regular rate/rhythm, normal heart sounds, normal peripheral pulses Gastrointestinal/Abdomen Exam: soft, normal bowel sounds, No tenderness Pelvic Exam: not done Rectal Exam: not done Back Exam: normal inspection, normal range of motion, No CVA tenderness, No vertebral tenderness Extremity Exam: normal inspection, normal range of motion, pelvis stable Neurologic Exam: alert, oriented x 3, cooperative, zumba instructor II-XII nml as tested, normal mood/affect, nml cerebellar function, nml station & gait, sensation nml Skin Exam: normal color, warm, dry Lymphatic Exam: No adenopathy SpO2 Interpretation: normal SpO2: 99 O2 Delivery: Room Air - Course Nursing assessment & vital signs reviewed: Yes EKG Interpreted by Me: RATE, Sinus Tach, NORMAL AXIS, NORMAL INTERVALS, NORMAL QRS, NORMAL ST-T, Other (No acute ischemic changes on today's EKG. There is no significant change from EKG dated 06/07/2019.) Ordered Tests: Active Orders 24 hr Category Date Time Status Electrical Line Mechanic STAT Care 04/22/21 01:57 Active EKG-ER Only STAT Care 04/22/21 01:55 Active IV Insertion STAT Care 04/22/21 01:55 Active Pulse Oximetry (ED) STAT Care 04/22/21 01:55 Active CHEST 1 VIEW (PORTABLE) Stat Exams 04/22/21 01:57 Taken CHEST WITH CONTRAST [CT] Stat Exams 04/22/21 02:36 Taken CBC W DIFF Stat Lab 04/22/21 02:05 Completed CMP Stat Lab 04/22/21 02:05 Completed D-DIMER QUANTITATIVE Stat Lab 04/22/21 02:05 Completed PROTIME WITH INR Stat Lab 04/22/21 02:05 Completed TROPONIN Q3H Lab 04/22/21 02:05 Completed TROPONIN Q3H Lab 04/22/21 05:00 Ordered TROPONIN Q3H Lab 04/22/21 08:00 Ordered TROPONIN Q3H Lab 04/22/21 11:00 Ordered TROPONIN Q3H Lab 04/22/21 14:00 Ordered Medication Summary Discontinued Medications Generic Name Dose Route Start Last Admin Trade Name Kash PRN Reason Stop Dose Admin Aspirin 324 mg 04/22/21 01:55 04/22/21 02:01 Baby Aspirin 81 Mg Chew PO 04/22/21 01:56 324 mg STAT ONE Administration Potassium Chloride 20 meq 04/22/21 02:27 04/22/21 02:40 Klor Con 10 Meq PO 04/22/21 02:28 20 meq STAT ONE Administration Potassium Chloride Confirm 04/22/21 02:39 Klor Con 10 Meq Administered 04/22/21 02:40 Dose 20 meq PO .STRateItAll-MED ONE Lab/Rad Data: Laboratory Result Diagrams 04/22/21 02:05 04/22/21 02:05 Laboratory Results 04/22/21 04/22/21 04/22/21 Range/Units 02:05 02:05 02:05 WBC (4.0-10.5) K/mm3 RBC (4.1-5.4) M/mm3 Hgb (12.0-16.0) gm/dl Hct (35-47) % MCV (78-100) fl MCH (26-32) pg MCHC (32-36) g/dl RDW (11.5-14.0) % Plt Count (150-450) K/mm3 MPV (7.5-11.0) fl Gran % (36.0-66.0) % Eos # (Auto) (0-0.5) Absolute Lymphs (auto) (1.0-4.6) Absolute Monos (auto) (0.0-1.3) Lymphocytes % (24.0-44.0) % Monocytes % (0.0-12.0) % Eosinophils % (0.00-5.0) % Basophils % (0.0-0.4) % Absolute Granulocytes (1.4-6.9) Basophils # (0-0.4) PT 10.8 (9.4-12.5) SECONDS INR 0.92 (0.8-3.0) D-Dimer 577 H* (215-500) ng/mL Sodium 138 (137-145) mmol/L Potassium 3.1 L (3.5-5.1) mmol/L Chloride 100 (98-107) mmol/L Carbon Dioxide 24 (22-30) mmol/L Anion Gap 17.6 H (5-15) MEQ/L BUN 13 (7-17) mg/dL Creatinine 1.01 (0.52-1.04) mg/dL Estimated GFR > 60.0 ML/MIN Glucose 131 H (74-106) mg/dL Calcium 10.0 (8.4-10.2) mg/dL Total Bilirubin 0.40 (0.2-1.3) mg/dL AST 28 (14-36) U/L ALT 29 (0-35) U/L Alkaline Phosphatase 95 (38-126) U/L Troponin I < 0.012 (0.000-0.034) ng/mL Serum Total Protein 7.9 (6.3-8.2) g/dL Albumin 4.8 (3.5-5.0) g/dL 04/22/21 Range/Units 02:05 WBC 8.3 (4.0-10.5) K/mm3 RBC 4.56 (4.1-5.4) M/mm3 Hgb 13.9 (12.0-16.0) gm/dl Hct 42.6 (35-47) % MCV 93.4 (78-100) fl MCH 30.5 (26-32) pg MCHC 32.6 (32-36) g/dl RDW 12.6 (11.5-14.0) % Plt Count 305 (150-450) K/mm3 MPV 10.6 (7.5-11.0) fl Gran % 57.2 (36.0-66.0) % Eos # (Auto) 0.17 (0-0.5) Absolute Lymphs (auto) 2.53 (1.0-4.6) Absolute Monos (auto) 0.83 (0.0-1.3) Lymphocytes % 30.4 (24.0-44.0) % Monocytes % 10.0 (0.0-12.0) % Eosinophils % 2.0 (0.00-5.0) % Basophils % 0.4 (0.0-0.4) % Absolute Granulocytes 4.76 (1.4-6.9) Basophils # 0.03 (0-0.4) PT (9.4-12.5) SECONDS INR (0.8-3.0) D-Dimer (215-500) ng/mL Sodium (137-145) mmol/L Potassium (3.5-5.1) mmol/L Chloride (98-107) mmol/L Carbon Dioxide (22-30) mmol/L Anion Gap (5-15) MEQ/L BUN (7-17) mg/dL Creatinine (0.52-1.04) mg/dL Estimated GFR ML/MIN Glucose (74-106) mg/dL Calcium (8.4-10.2) mg/dL Total Bilirubin (0.2-1.3) mg/dL AST (14-36) U/L ALT (0-35) U/L Alkaline Phosphatase (38-126) U/L Troponin I (0.000-0.034) ng/mL Serum Total Protein (6.3-8.2) g/dL Albumin (3.5-5.0) g/dL - Progress Progress: improved, re-examined Air Movement: good Progress Note: 04/22/21 05:05 Chest x-ray shows no acute cardiopulmonary process. CTA of the chest shows no pulmonary embolus. There are no other acute cardiopulmonary processes. Blood Culture(s) Obtained: No Antibiotics given: No Counseled pt/family regarding: lab results, diagnosis, need for follow-up, rad results - Departure Departure Disposition: Home Clinical Impression: Chest pain, Hypokalemia, Methamphetamine abuse Condition: Stable Critical Care Time: No Additional Instructions: Drink plenty fluids. Eat plenty of green leafy vegetables, nuts and bananas. Avoid illicit drug use of any kind. Follow-up with your primary care physician as an outpatient on 04/24/2021 for further management. Use Tylenol and ibuprofen for pain control.
[2021-04-22 02:09] LABS: Absolute Neutrophil Ct (ANC) 4.76 (1.4-6.9); BASOPHIL % 0.4 % (0.0-0.4); Basophil (Absolute #) 0.03 (0-0.4); Eosinophil (Absolute #) 0.17 (0-0.5); Hematocrit 42.6 % (35-47); Hemoglobin 13.9 gm/dl (12.0-16.0); Lymphocyte (Absolute #) 2.53 (1.0-4.6); Lymphocytes % 30.4 % (24.0-44.0); Mean Cell Volume 93.4 fl (78-100); Mean Corpuscular Hemoglobin 30.5 pg (26-32); Mean Corpuscular Hgb Concent. 32.6 g/dl (32-36); Mean Platelet Volume 10.6 fl (7.5-11.0); Monocyte (Absolute #) 0.83 (0.0-1.3); Neutrophil % 57.2 % (36.0-66.0); Platelet Count 305 K/mm3 (150-450); Red Blood Count 4.56 M/mm3 (4.1-5.4); Red Cell Distribution Width 12.6 % (11.5-14.0); White Blood Count 8.3 K/mm3 (4.0-10.5)
[2021-04-22 02:14] LABS: ALBUMIN 4.8 g/dL (3.5-5.0); ALKALINE PHOSPHATASE 95 U/L (38-126); ANION GAP 17.6 MEQ/L (5-15); BLOOD UREA NITROGEN 13 mg/dL (7-17); CHLORIDE 100 mmol/L (98-107); Carbon Dioxide 24 mmol/L (22-30); Creatinine 1 1.01 mg/dL (0.52-1.04); EST GLOMERULAR FILTRATION RATE > 60.0 ML/MIN; Glucose 131 mg/dL (74-106); Potassium 3.1 mmol/L (3.5-5.1); SGOT/AST 28 U/L (14-36); SGPT/ALT 29 U/L (0-35); SODIUM 138 mmol/L (137-145); Total Protein 7.9 g/dL (6.3-8.2)
[2021-04-22 02:18] LABS: INR 0.92 (0.8-3.0); PROTIME 10.8 SECONDS (9.4-12.5)
[2021-04-22] MEDS ORDERED: Klor Con 10 MEQ PO ONE ×2 (02:27→02:39)
[2021-04-22 05:08] VITALS: BP 117/70; PULSE 76; O2SAT 99
--- NOTE | 2021-04-22 08:13 | XRAY ---
Indication: Elevated d-dimer. Chest pain. Multiple contiguous axial images obtained through the chest using 80 cc Isovue 370 contrast and PE protocol. Comparison: None. There is good opacification of the pulmonary arteries to include the lobar and segmental branches. No pulmonary embolus. Heart not enlarged. Aorta is normal in course and caliber. No pathologic mediastinal/hilar lymphadenopathy. Lungs are inflated and clear. Bony thorax intact. Limited upper abdomen unremarkable. Impression: Negative pulmonary embolus. No acute cardiopulmonary abnormalities. Comment: Preliminary interpretation made by [facility]. No critical discrepancy.
--- NOTE | 2021-04-22 08:15 | XRAY ---
Indication: Chest pain. Comparison: June 07, 2019. Portable chest remains clear. Heart not enlarged. Bony thorax intact. No new/acute findings.
== END 2021-04-22 05:00 | disposition home or self-care (01) ==
LOC: ED 01:32
DX: R07.89 Other chest pain (principal); E87.6 Hypokalemia; F11.10 Opioid abuse, uncomplicated; R42 Dizziness and giddiness; E03.9 Hypothyroidism, unspecified
CPT/HCPCS: 36000; 36415; 71045; 71260; 80053; 84484; 85025; 85379; 85610; 93005; 93041; 94760; 99284; A9270-GY

== ENCOUNTER 2021-11-27 23:44 | Emergency (ER) | payer OTHER ==
--- NOTE | 2021-11-28 02:36 | ERPHSYRPT ---
- History of Present Illness Source: patient Exam Limitations: other (Poor historian) Patient Subjective Stated Complaint: Started ear drop antibiotic for ear infection on 11/24/21. Took ear drop tonight at 2130, and shortly thereafter left ear, neck, and throat began to swell. Left side of throat began to feel scratchy. Triage Nursing Assessment: Pt alert and oriented x 4. Left side of neck and slightly edematous. Voice sounds somewhat hoarse. Inner left ear notably re ddened. Respirations unlabored. Patient denies pain and dyspnea. Physician History: 51 yo wf who started Floxin Otic on 11/24/21 for presumably otitis externa presents w L facial edema and subjective dysphagia. Pt believes that she possibly has an allergy to Floxin Otic. 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 Fever/dyspnea/dental pain/cough/N/V are all denied. Timing/Duration: abrupt onset ENT Location: facial (L facial) Prearrival Treatment: no prearrival treatment Associated Symptoms: ear pain (L), change in hearing (L), facial pain/swelling (L side), swollen glands, No ear pain (R), No cough, No fever, No chills, No dizziness, No drooling, No ear drainage, No headache, No hearing loss, No jaw pain, No malaise, No motion sickness, No nasal congestion/drainage, No epistaxis, No nasal foreign body, No neck pain, No poor fluid intake, No poor solids intake, No ringing of ears, No sinus infection, No sore throat, No tooth pain, No difficulty swallowing, No voice change Allergies/Adverse Reactions: codeine Adverse Reaction (Mild, Verified 11/27/21 23:53) sickness Home Medications: Ofloxacin Otic 5 ml [Floxin Otic 5 ML] 10 drops OT DAILY 11/27/21 [History] Hx Tetanus, Diphtheria Vaccination/Date Given: Yes (2005) Hx Influenza Vaccination/Date Given: No Hx Pneumococcal Vaccination/Date Given: No Travel Risk - International Travel Have you traveled outside of the country in past 3 weeks: No - Coronavirus Screening Are you exhibiting any of the following symptoms?: Yes Symptoms: Fever - Vaccine Status Have you recieved a Covid-19 vaccination: No - Review of Systems Constitutional: No Symptoms Eyes: No Symptoms Ears, Nose, & Throat: Ear Pain (L), Throat Swelling, No Ear Discharge, No Hearing Changes, No Tinnitus, No Nose Pain, No Nose Congestion, No Nose Discharge, No Sinus Drainage, No Epistaxis, No Mouth Pain, No Mouth Swelling, No Loose Teeth, No Throat Pain, No Hoarse, No Painful Swallowing, No Snoring, No Stridor Respiratory: No Symptoms Cardiac: No Symptoms Abdominal/Gastrointestinal: No Symptoms Genitourinary Symptoms: No Symptoms Musculoskeletal: No Symptoms Skin: No Symptoms Neurological: No Symptoms Psychological: No Symptoms Endocrine: No Symptoms Hematologic/Lymphatic: No Symptoms Immunological/Allergic: No Symptoms - Past Medical History Pertinent Past Medical History: Yes Neurological History: No Pertinent History ENT History: No Pertinent History Cardiac History: Angina, Other Respiratory History: No Pertinent History Endocrine Medical History: Hypothyroidism GI Medical History: GI Bleed History: No Pertinent History Psycho-Social History: No Pertinent History Female Reproductive Disorders: Other Other Medical History: cysts removed, chronic ear infections, left sided salivary gland tumor - Past Surgical History Past Surgical History: Yes Neuro Surgical History: No Pertinent History Cardiac: No Pertinent History Gastrointestinal: No Pertinent History Genitourinary: No Pertinent History Musculoskeletal: No Pertinent History Female Surgical History: Tubal Ligation Other Surgical History: rt wrist ganglion cyst removed, ovarian cyst removed. 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, left sclerotherapy - Social History Smoking Status: Current every day smoker How long have you smoked: 25 Exposure to second hand smoke: No Drug Use: methamphetamines Patient Lives Alone: No Significant Family History: no pertinent family hx - Nursing Vital Signs Nursing Vital Signs: Initial Vital Signs Pulse Rate 95 H 11/27/21 23:55 Respiratory Rate 20 11/27/21 23:55 Blood Pressure 137/87 11/27/21 23:55 O2 Sat by Pulse Oximetry 100 11/27/21 23:55 Pain Scale Pain Intensity 0 WNL - Physical Exam General Appearance: no apparent distress Eye Exam: bilateral eye: normal inspection, PERRL, EOMI Ear Exam: right ear: auricle normal, canal normal, TM normal, left ear: swelling (L canal edematous/erythematous/Unable to visualize L TM) Nasal Exam: normal inspection Throat Exam: normal, pharynx normal, mandibular swelling (L mandibular/L facial edema/No erythema), No dental tenderness, No excessive drooling, No foreign body Neck Exam: normal inspection, non-tender, supple, full range of motion, trachea midline, No Brudzinski's sign, No carotid bruit Cardiovascular/Respiratory Exam: normal breath sounds, regular rate/rhythm, heart sounds normal, no respiratory distress Abdominal Exam: non-tender, soft Neurologic Exam: alert, oriented x 3, cooperative, metal bonding crib attendant II-XII nml as tested, normal mood/affect, nml cerebellar function, nml station & gait, sensation nml, No motor deficits, No sensory deficit Skin Exam: normal color, warm, dry SpO2 Interpretation: normal SpO2: 99 O2 Delivery: Room Air - CT Exams Maxillofacial Bones CT Interpretation: Tele-radiologist Report (Trace L mastoid effusion/L parotid gland edematous/reactive cervical lymph nodes) Ordered Tests: Active Orders 24 hr Category Date Time Status FACIAL BONES WO CONTRAST [CT] Stat Exams 11/28/21 00:29 Taken - Progress Progress Note: 11/28/21 03:06 Pt refuses all pain meds during stay Counseled pt/family regarding: diagnosis, need for follow-up, rad results - Departure Departure Disposition: Home Clinical Impression: Parotiditis Condition: Stable Critical Care Time: No Referrals: FRED BRAUN MD [Primary Care Provider] - Follow up/PCP as directed Instructions: Parotitis Additional Instructions: Start Augmentin Continue with Floxin otic to left ear Follow up with your ENT tomorrow Prescriptions: Amox Tr/Potass Clav. 875 mg [Augmentin 875-125 Tablet] 1 each PO BID #20 tablet
[2021-11-28 03:13] VITALS: BP 114/79; PULSE 73
[2021-11-28 04:19] VITALS: O2SAT 99
--- NOTE | 2021-11-28 09:07 | XRAY ---
Indication: Left facial pain and swelling. Left earache. Multiple contiguous images obtained through the facial bones. Sagittal and coronal reformatted images obtained. Cutaneous marker placed over region of interest. Comparison: None No acute fracture, suspicious bony lesions, or radiopaque foreign body. Orbits including roof, prieto, and floor intact. Maxillary sinuses demonstrates minimal/mild mucosal thickening. Remaining paranasal sinuses and nasal passages are clear. Incidental mild S-shaped nasal septal deviation. Left facial cutaneous marker corresponds to underlying parotid gland which is mildly prominent with minimal stranding favoring parotiditis. Scattered centimeter/subcentimeter cervical and submandibular lymph nodes presumed reactive. No pathologic lymphadenopathy. Remaining visualized noncontrasted soft tissues including base of brain unremarkable. Supra and infraglottic airway are widely patent. Inferior left mastoid air cells demonstrates minimal opacification presumed inflammatory. Impression: 1. Left parotiditis with small reactive cervical/submandibular nodes. 2. Paranasal sinus disease and nasal septal deviation. 3. Minimal opacification left mastoid air cells presumed inflammatory. Comment: Preliminary interpretation made by [facility]. No critical discrepancy.
== END 2021-11-28 03:25 | disposition home or self-care (01) ==
LOC: ED 23:44
DX: K11.20 Sialoadenitis, unspecified (principal); R60.0 Localized edema; H92.02 Otalgia, left ear; Z72.0 Tobacco use
CPT/HCPCS: 70486; 99283

== ENCOUNTER 2023-11-29 08:58 | Emergency (ER) | payer OTHER ==
--- NOTE | 2023-11-29 09:22 | ERPHSYRPT ---
- History of Present Illness Time Seen by Provider: 11/29/23 09:22 Source: patient Exam Limitations: no limitations Physician History: This is a 53-year-old white female patient who presents to the emergency department by private vehicle. Her primary care physician is Dr. Braun. Her oncologist is Dr. Chaney. Patient has known history of colon cancer and received her last dose of chemotherapy recently. Yesterday, 11/28/2023, patient noticed a sore throat followed by swelling of her left lower jaw and left side neck. She feels the swelling is more pronounced since yesterday. She denies chest pain. She denies shortness of breath. She also denies having any dental pain. She denies any new medication. She denies chest pain. She denies shortness of breath. She has not had stridor or wheezing. She states she has no difficulty swallowing. Patient does have a history of hypothyroidism. Timing/Duration: abrupt onset Severity: mild (Moderate. Left lower jaw) Prearrival Treatment: no prearrival treatment Modifying Factors: Improves With: nothing Associated Symptoms: jaw pain (Left side with overlying skin swelling), swollen glands (Question left submandibular gland), sore throat (Mild), No poor fluid intake, No poor solids intake, No tooth pain, No difficulty swallowing, No voice change Allergies/Adverse Reactions: codeine Adverse Reaction (Mild, Verified 11/29/23 09:12) nausea, sickness Home Medications: Cholecalciferol (Vitamin D3) [Vitamin D] 150,000 unit PO WEEKLY 07/24/22 [History] Levothyroxine Sodium 100 Mcg [Synthroid 100 Mcg] 100 mcg PO DAILY 11/29/23 [History] Hx Tetanus, Diphtheria Vaccination/Date Given: Yes (2005) Hx Influenza Vaccination/Date Given: No Hx Pneumococcal Vaccination/Date Given: No Travel Risk - International Travel Have you traveled outside of the country in past 3 weeks: No - Emerging Infectious Disease Are you exhibiting symptoms associated with any current EIDs: No - Review of Systems Constitutional: No Symptoms Eyes: No Symptoms Ears, Nose, & Throat: Throat Pain (Mild), Other (Left lower jaw discomfort with associated overlying swelling), No Mouth Pain, No Painful Swallowing Respiratory: No Symptoms Cardiac: No Symptoms Abdominal/Gastrointestinal: No Symptoms Genitourinary Symptoms: No Symptoms Musculoskeletal: No Symptoms Skin: No Symptoms Neurological: No Symptoms Psychological: No Symptoms Endocrine: No Symptoms Hematologic/Lymphatic: No Symptoms Immunological/Allergic: No Symptoms All Other Systems: Reviewed and Negative - Past Medical History Pertinent Past Medical History: Yes Neurological History: No Pertinent History ENT History: No Pertinent History Cardiac History: Angina, Other Respiratory History: No Pertinent History Endocrine Medical History: Hypothyroidism GI Medical History: GI Bleed History: No Pertinent History Psycho-Social History: No Pertinent History Female Reproductive Disorders: Other Other Medical History: cysts removed, chronic ear infections, left sided salivary gland tumor. hx abnormal EKG - Past Surgical History Past Surgical History: Yes Neuro Surgical History: No Pertinent History Cardiac: No Pertinent History Gastrointestinal: No Pertinent History Genitourinary: No Pertinent History Musculoskeletal: No Pertinent History Female Surgical History: Tubal Ligation Other Surgical History: rt wrist ganglion cyst removed, ovarian cyst removed. *Mucocele removal bx x3. 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 lap ovarian cystectomy x3 Significant Family History: no pertinent family hx - Social History Smoking Status: Current every day smoker How long have you smoked: 25 Exposure to second hand smoke: No Drug Use: methamphetamines Patient Lives Alone: No - Nursing Vital Signs Nursing Vital Signs: Initial Vital Signs Temperature 98.0 F 11/29/23 09:14 Pulse Rate 91 H 11/29/23 09:14 Respiratory Rate 18 11/29/23 09:14 Blood Pressure 126/87 11/29/23 09:14 O2 Sat by Pulse Oximetry 95 11/29/23 09:14 Pain Scale Pain Intensity 0 - Physical Exam General Appearance: no apparent distress, alert, anxiety Eye Exam: bilateral eye: normal inspection, PERRL, EOMI Ear Exam: bilateral ear: auricle normal, canal normal, TM normal Nasal Exam: normal inspection Throat Exam: normal, pharynx normal, mandibular swelling (Left side externally), moist mucus membranes, No dental tenderness, No tongue swollen, No uvula swelling Neck Exam: normal inspection, non-tender, supple, full range of motion, trachea midline Cardiovascular/Respiratory Exam: chest non-tender, normal breath sounds, regular rate/rhythm, heart sounds normal, no respiratory distress Abdominal Exam: non-tender, soft Neurologic Exam: alert, oriented x 3, cooperative, media assistant II-XII nml as tested, normal mood/affect, nml cerebellar function, nml station & gait, sensation nml Skin Exam: normal color, warm, dry SpO2 Interpretation: normal O2 Delivery: Room Air - Course Nursing assessment & vital signs reviewed: Yes EKG Interpreted by Me: RATE (89), Sinus Rhythm, NORMAL AXIS, NORMAL INTERVALS, NORMAL QRS, NORMAL ST-T, Other (No acute ischemia on today's twelve-lead EKG) Ordered Tests: Active Orders 24 hr Category Date Time Status IV Insertion STAT Care 11/29/23 10:05 Active FACIAL BONES WO CONTRAST [CT] Stat Exams 11/29/23 10:44 Completed NECK WO CONTRAST [CT] Stat Exams 11/29/23 10:44 Completed CBC W DIFF Stat Lab 11/29/23 10:08 Completed CMP Stat Lab 11/29/23 10:08 Completed Medication Summary Discontinued Medications Generic Name Dose Route Start Last Admin Trade Name Freq PRN Reason Stop Dose Admin Methylprednisolone Sodium 0 mg 11/29/23 10:05 11/29/23 10:26 Succinate 125 mg/ Sterile IV 11/29/23 10:06 125 mg Water 2 ml STAT ONE Administration Diphenhydramine HCl 25 mg 11/29/23 10:05 11/29/23 10:26 Diphenhydramine Hcl 50 Mg/Ml Vial IV 11/29/23 10:06 25 mg STAT ONE Administration Diphenhydramine HCl Confirm 11/29/23 10:25 Diphenhydramine Hcl 50 Mg/Ml Vial Administered 11/29/23 10:26 Dose 50 mg .ROUTE .STK-MED ONE Famotidine 40 mg 11/29/23 10:05 11/29/23 10:26 Famotidine 20 Mg Tablet PO 11/29/23 10:06 40 mg STAT ONE Administration Famotidine Confirm 11/29/23 10:25 Famotidine 20 Mg Tablet Administered 11/29/23 10:26 Dose 40 mg .ROUTE .STK-MED ONE Methylprednisolone Sodium Succinate Confirm 11/29/23 10:25 Methylprednis Sod Succ 125 Mg/2 Ml Vial Administered 11/29/23 10:26 Dose 125 mg .ROUTE .STK-MED ONE Sterile Water Confirm 11/29/23 10:24 Water For Injection,Sterile 10 Ml Vial Administered 11/29/23 10:25 Dose 10 ml IJ .STK-MED ONE Lab/Rad Data: Laboratory Result Diagrams 11/29/23 10:08 11/29/23 10:08 Laboratory Results 11/29/23 11/29/23 11/29/23 Range/Units 10:25 10:08 10:08 WBC 4.5 (4.0-10.5) x10^3/uL RBC 4.55 (4.1-5.4) x10^6/uL Hgb 13.9 (12.0-16.0) g/dL Hct 42.1 (35-47) % MCV 92.5 (78-100) fL MCH 30.5 (26-32) pg MCHC 33.0 (32-36) g/dL RDW 12.8 (11.5-14.0) % Plt Count 247 (150-450) x10^3/uL MPV 9.6 (7.5-11.0) fL Gran % 55.3 (36.0-66.0) % Immature Gran % (Auto) 0.2 (0.00-0.4) % Nucleat RBC Rel Count 0.0 (0.00-0.1) % Eos # (Auto) 0.09 (0-0.5) x10^3/uL Immature Gran # (Auto) 0.01 (0.00-0.03) x10^3u/L Absolute Lymphs (auto) 1.19 (1.0-4.6) x10^3/uL Absolute Monos (auto) 0.70 (0.0-1.3) x10^3/uL Absolute Nucleated RBC 0.00 (0.00-0.01) x10^3u/L Lymphocytes % 26.5 (24.0-44.0) % Monocytes % 15.6 H (0.0-12.0) % Eosinophils % 2.0 (0.00-5.0) % Basophils % 0.4 (0.0-0.4) % Absolute Granulocytes 2.48 (1.4-6.9) x10^3/uL Basophils # 0.02 (0-0.4) x10^3/uL Sodium 141 (135-145) mmol/L Potassium 4.2 (3.5-5.1) mmol/L Chloride 106 (98-107) mmol/L Carbon Dioxide 28 (22-30) mmol/L Anion Gap 12.0 (5-15) MEQ/L BUN 13 (7-17) mg/dL Creatinine 0.82 (0.52-1.04) mg/dL Estimated GFR 86.0 ML/MIN Glucose 73 L (74-106) mg/dL Calcium 9.5 (8.4-10.2) mg/dL Total Bilirubin 0.60 (0.2-1.3) mg/dL AST 35 (14-36) U/L ALT 41 H (0-35) U/L Alkaline Phosphatase 100 (38-126) U/L Serum Total Protein 7.5 (6.3-8.2) g/dL Albumin 4.2 (3.5-5.0) g/dL Influenza Type A Ag NEGATIVE (NEGATIVE) Influenza Type B Ag NEGATIVE (NEGATIVE) RSV (PCR) NEGATIVE (NEGATIVE) SARS-CoV-2 (PCR) NEGATIVE (NEGATIVE) Group A Strep Antibody NOT DETECTED (NEGATIVE) - Progress Progress: improved, re-examined Progress Note: 11/29/23 11:26 My medical decision making and the assignment of moderate complexity to this patient's medical issue is based on review of the patient's past medical history, review the patient's medication list, review of patient drug allergy list, history of present illness and physical findings on examination. The workup in this patient includes placement of an intravenous line through the patient's previously placed port, CBC, CMP, viral swabs, group A strep swab, infusion of Solu-Medrol 125 mg, infusion of Benadryl 25 mg intravenously, Pepcid 40 mg orally. Despite the infusion of Solu-Medrol Benadryl and Pepcid, the patient was feeling as though the swelling was worsening. However, I went in and reexamine the patient and it appears no different to me. However, I also opted to do a CT scan of the face and neck to evaluate for possible abscess pocket. Differential diagnosis includes dental infection with abscess, parotiditis, s ubcutaneous abscess, allergic reaction 11/29/23 12:11 I interpreted the patient's laboratory data results. Based on today's laboratory data results, there are no acute, emergent medical issues. CT scan of the neck without contrast was interpreted by the radiologist. I reviewed the impression. The impression states new left mandibular cellulitis. No underlying fluid collection or abscess. Cervical/submandibular nodes presumed to be reactive. CT scan of the facial bones without contrast was interpreted by the radiologist and I reviewed the impression. The impression states new left mandibular cellulitis. The supra/infraglottic airway is widely patent. There is a normal epiglottis. Counseled pt/family regarding: lab results, diagnosis, rad results Medical Desision Making - Diagnostic Testing Diagnostic test were ordered, analyzed, and reviewed by me: Yes Radiological Interpretation: Reviewed by me, Teleradiologist Report - Risk of complications The pt has a mod risk of morbidity or mortality based on: Need for prescription drug management - Departure Departure Disposition: Home Clinical Impression: Facial cellulitis Condition: Stable Critical Care Time: No Referrals: FRED BRAUN MD [Primary Care Provider] - Follow up/PCP as directed Additional Instructions: Drink plenty of fluids. Take your medication as prescribed. Call your primary care provider and oncologist today to make arrangement for follow-up appointment to be seen in the next 3 to 5 days. This appears to be more of an infection then allergic reaction. You could add [id number] Benadryl and Pepcid for a few days. Prescriptions: Smz/Tmp Ds Tablet [Bactrim Ds Tablet] 1 udtab PO BID #14 tablet Prednisone 5 mg [Deltasone 5 mg] 5 mg PO TID #12 tablet
[2023-11-29 09:32] VITALS: TEMP 98
[2023-11-29 10:07] VITALS: RESP 15
[2023-11-29 10:10] LABS: Absolute Neutrophil Ct (ANC) 2.48 x10^3/uL (1.4-6.9); BASOPHIL % 0.4 % (0.0-0.4); Basophil (Absolute #) 0.02 x10^3/uL (0-0.4); Eosinophil (Absolute #) 0.09 x10^3/uL (0-0.5); Hematocrit 42.1 % (35-47); Hemoglobin 13.9 g/dL (12.0-16.0); IMMATURE GRAN # 0.01 x10^3u/L (0.00-0.03); IMMATURE GRAN % 0.2 % (0.00-0.4); Lymphocyte (Absolute #) 1.19 x10^3/uL (1.0-4.6); Lymphocytes % 26.5 % (24.0-44.0); Mean Cell Volume 92.5 fL (78-100); Mean Corpuscular Hemoglobin 30.5 pg (26-32); Mean Platelet Volume 9.6 fL (7.5-11.0); Monocytes % 15.6 % (0.0-12.0); Neutrophil % 55.3 % (36.0-66.0); Platelet Count 247 x10^3/uL (150-450); Red Blood Count 4.55 x10^6/uL (4.1-5.4); Red Cell Distribution Width 12.8 % (11.5-14.0); White Blood Count 4.5 x10^3/uL (4.0-10.5)
[2023-11-29 10:18] LABS: ALBUMIN 4.2 g/dL (3.5-5.0); BILIRUBIN,TOTAL 0.6 mg/dL (0.2-1.3); Calcium 9.5 mg/dL (8.4-10.2); Creatinine 1 0.82 mg/dL (0.52-1.04); Potassium 4.2 mmol/L (3.5-5.1); Total Protein 7.5 g/dL (6.3-8.2)
[2023-11-29] MEDS ORDERED: Sterile H2O 10 ml IJ ONE (10:24)
[2023-11-29] MEDS ORDERED: BENADRYL 50 MG/ML ONE (10:25)
[2023-11-29] MEDS ORDERED: solu-MEDROL ONE (10:25)
[2023-11-29] MEDS ORDERED: Pepcid 20 MG ONE (10:25)
[2023-11-29] MEDS: Pepcid 20 MG PO ONE (10:26)
[2023-11-29] MEDS: BENADRYL 50 MG/ML IV ONE (10:26)
[2023-11-29] MEDS: solu-MEDROL 125 MG, Sterile H2O 10 ml 2 ML IV ONE (10:26)
[2023-11-29 10:56] LABS: Group A Strep NOT DETECTED (NEGATIVE)
[2023-11-29 11:08] LABS: INFLUENZA A NEGATIVE (NEGATIVE); INFLUENZA B NEGATIVE (NEGATIVE); RESPIRATORY SYNCTIAL VIRUS NEGATIVE (NEGATIVE); SARS-CoV-2 Xpert Express NEGATIVE (NEGATIVE)
[2023-11-29 11:12] VITALS: BP 116/81; PULSE 89; O2SAT 98
--- NOTE | 2023-11-29 12:02 | XRAY ---
Indication: Facial and neck swelling. Abscess. Multiple contiguous axial images obtained through the facial bones without contrast as ordered. Sagittal and coronal reformatted images obtained. Cutaneous BB placed over region of the chest. Comparison: November 28, 2021 Cutaneous BB is left mid mandible level where there is new mild cutaneous/subcutaneous induration favoring inflammatory/infectious process. No underlying solid/cystic mass or abnormal fluid collection. Scattered centimeter/subcentimeter cervical and submandibular lymph nodes bilaterally, none pathologically enlarged. Visualized parotid and submandibular glands are bilaterally symmetric. Supra and infraglottic airway are widely patent. Normal epiglottis. Visualized osseous structures intact again with a few left dental amalgams. No suspicious bony lesions or osseous destructive process. Right maxillary sinus again demonstrates two 1 cm polyps/retention cysts. Orbits and base of brain unremarkable. Impression: 1. New left mandibular cellulitis. No underlying fluid collection/abscess or osseous destructive process. Cervical/submandibular lymph nodes presumed reactive. 2. Again incidental right maxillary sinus polyps/retention cysts.
--- NOTE | 2023-11-29 12:06 | XRAY ---
Indication: Facial and neck swelling. Abscess. Multiple contiguous axial images obtained through the neck without contrast as ordered. Sagittal and coronal reformatted images obtained. Cutaneous BB placed over region of interest. Comparison: January 05, 2019 Cutaneous BB is left mid mandible level where there is new mild cutaneous/subcutaneous induration favoring inflammatory/infectious process. No underlying solid/cystic mass or abnormal fluid collection. Scattered centimeter/subcentimeter cervical and submandibular lymph nodes bilaterally, none pathologically enlarged. Visualized parotid, submandibular, and thyroid glands are bilaterally symmetric. Supra and infraglottic airway are widely patent. Normal epiglottis. Visualized osseous structures intact again with minimal C4-C6 degenerative disc disease. No suspicious bony lesions or osseous destructive process. New incompletely visualized left Port-A-Cath. Right maxillary sinus again demonstrates two 1 cm polyps/retention cysts. Lung apices and base of brain unremarkable. Impression: 1. New left mandibular cellulitis. No underlying fluid collection/abscess or osseous destructive process. Cervical/submandibular lymph nodes presumed reactive. 2. Again incidental right maxillary sinus polyps/retention cysts.
== END 2023-11-29 12:40 | disposition home or self-care (01) ==
LOC: ED 08:58
DX: L03.211 Cellulitis of face (principal); Z79.52 Long term (current) use of systemic steroids; Z79.899 Other long term (current) drug therapy; Z72.0 Tobacco use
CPT/HCPCS: 0241U; 36415; 70486; 70490; 80053; 85025; 87651; 96374; 96375; 99284; J1200; J1642; J2919; A9270-GY

== ENCOUNTER 2024-06-30 16:16 | Emergency (ER) | payer OTHER | END 2024-06-30 16:25 | disposition left against medical advice (07) | LOC: ED 16:16 | DX: Z53.21 Procedure and treatment not carried out due to patient leaving prior to being seen by health care provider (principal) | CPT/HCPCS: 99281 ==